=== PATIENT | male | born 1960 | race Two or more races ===

== ENCOUNTER 2021-03-06 16:56 | Emergency (ER) | payer MEDICAID, SELFPAY ==
[2021-03-06 16:57] VITALS: BP 184/96; PULSE 113; RESP 16; TEMP 36.4; O2SAT 98; BMI 18.7
--- NOTE | 2021-03-06 17:12 | EX.ED.DYSGE1 ---
HPI History of Present Illness Chief Complaint: Rash Informant: patient Onset/Context/Timing Onset: Month(s) (1) Context: Gradual Onset Timing: Continuous Quality: Excoriated Location: Bilateral lower legs and left forearm Worsened by: Nothing Relieved by: Nothing Narrative Narrative: Patient presents with a rash to his bilateral lower legs and left forearm that has been getting worse over the past month. Patient denies any itching. Patient noted some redness to the area. Patient denies any discharge or drainage. Patient denies any fevers or chills. Patient denies any new exposures. Patient states that they recently moved from a trammell infested dwelling. Patient denies any other symptoms. PFSH PFSH Medical History no medical history no medical history Home Medications cephalexin 500 mg PO Q6 #40 capsule 03/06/21 [Rx Last Taken Unknown] Allergy/AdvReac Type Severity Reaction Status Date / Time mussels Allergy Angioedema Verified 03/06/21 16:59 naproxen [From Naprosyn] Allergy Angioedema Verified 03/06/21 16:59 Surgical History (Updated 03/06/21 @ 17:[address] Messi Guardado, DO) History of back surgery Hx of inguinal herniorrhaphy ROS ROS ED Constitutional Constitutional ED: Reports chills, subjective and sweats; Denies fever(s) Eyes Eyes: Denies blurry vision or change in vision ENT ENT ED: Denies rhinorrhea or sore throat Cardiovascular Cardiovascular: Denies chest pain or palpitations Respiratory/Chest Respiratory/Chest: Denies cough or dyspnea Gastrointestinal Gastrointestinal: Denies nausea or vomiting Genitourinary Genitourinary ED: Denies dysuria or hematuria Musculoskeletal Musculoskeletal: Denies back pain or neck pain Integumentary Reports rash; Denies abscess Neurologic Neurologic: Denies headache(s) or weakness Allergic/Immunologic Allergic/Immunologic ED: Denies mouth swelling or urticaria EXAM Physical Exam Const Vital Signs: 03/06/21 16:57 Temperature 97.5 F L Temperature Source Temporal Pulse Rate 113 H Respiratory Rate 16 Blood Pressure 184/96 H Blood Pressure Mean 125 Pulse Ox 98 Oxygen Delivery Method Room Air Positive well nourished and well developed General Appearance ED: well developed HEENT Reports moist mucous membranes Neck supple and no JVD Neuro oriented x3, CN's II-XII intact bilaterally and no sensory deficits noted Sensorium / Orientation: alert Motor Exam: strength 5/5 throughout Psych mental status grossly normal Skin Skin Narrative: There is a superficial rash on the anterior lower legs and ulnar aspect of the left distal forearm. There are excoriated areas. There is no discharge or drainage. There are no vesicles or pustules. There are no petechia noted. There is no involvement of mucous membranes. There is no involvement of the webspaces. MDM MDM MDM Narrative Medical decision making narrative: Patient was advised that this is not consistent with scabies since it does not itch and there is no involvement of the webspaces. Patient was given a prescription for Keflex to cover for possible secondary infection. Patient was instructed to use moisturizing lotion. Patient also requested vaccine for COVID-19. This was given. Patient was instructed to follow-up with his primary care physician in 5 to 7 days. Patient understood and was agreeable with the plan. All questions were answered. Discharge Plan Triage Chief Complaint: Rash ED Provider: Messi Guardado Dx/Rx/DC Orders Clinical Impression: Dermatitis Instructions: ED Atopic Dermatitis (Adult) Prescriptions: New cephalexin [cephalexin] 500 MG capsule 500 mg PO Q6 Qty: 40 RF: 0 Primary Care Provider: Care Physician,No Primary Referrals: Yann Leone MD [STAFF PHYSICIAN] - 3-5 Days NOT,DEFINED [NON-STAFF] - Disposition Disposition: Home, Self Care
[2021-03-06] MEDS: COVID-19 VAC,AD26(JANSSEN)/PF 0.5 ML SYRINGE IM (18:33)
[2021-03-06 18:55] VITALS: PULSE 89; RESP 16; O2SAT 96
== END 2021-03-06 18:56 | disposition home or self-care (01) ==
PROVIDERS: Emergency Provider Emergency Medicine
DX: L30.9 Dermatitis, unspecified (principal)
CPT/HCPCS: 91303; 99282

== ENCOUNTER 2021-07-24 21:46 | Inpatient (IN) | payer MEDICAID, SELFPAY ==
[2021-07-24 21:48] VITALS: BP 99/85; PULSE 64; RESP 40; TEMP 36.8; O2SAT 82; BMI 17.5
--- NOTE | 2021-07-24 21:59 | EKG12_ITS ---
Test Reason : Blood Pressure : / mmHG Vent. Rate : 150 BPM Atrial Rate : 150 BPM P-R Int : 186 ms QRS Dur : 074 ms QT Int : 216 ms P-R-T Axes : 081 -12 103 degrees QTc Int : 341 ms Sinus tachycardia Right atrial enlargement Low voltage QRS ST & T wave abnormality, consider lateral ischemia Abnormal ECG Confirmed by TAMMY PEREZ, CARTER ([id number]), editorial intern CROW SOSA ([id number]) on 07/26/2021 10:39:29 AM Referred By: Confirmed By:CARTER MUNOZ MD
--- NOTE | 2021-07-24 22:01 | EDS_ITS ---
HPI History of Present Illness Chief Complaint: Abd Pain Informant: patient Onset/Context/Timing Onset: Today Context: Gradual Onset Timing: Waxes and wanes Current Severity: Moderate Maximum Severity: Severe Narrative Narrative: Patient presents secondary to abdominal pain. He reports abdominal pain started this morning and feels like his prior hernias. He has had 2 prior hernia repairs was told that he would need a third. He also reports some chest pain with shortness of breath. He is noted to be borderline hypotensive and tachycardic on arrival. Pulse oximetry is not picking up good waveform but O2 sats are reading low in the 80s. Patient denies fever or chills. He denies nausea or vomiting. He has been able to have a bowel movement today. [facility] Medical History COPD (chronic obstructive pulmonary disease) Home Medications cephalexin 500 mg PO Q6 #40 capsule 03/06/21 [Rx Last Taken Unknown] Allergy/AdvReac Type Severity Reaction Status Date / Time mussels Allergy Angioedema Verified 03/06/21 16:59 naproxen [From Naprosyn] Allergy Angioedema Verified 03/06/21 16:59 iodine AdvReac Other Verified 07/24/21 22:53 Surgical History History of back surgery Hx of inguinal herniorrhaphy Social History Smoking Status: Current every day smoker tobacco type: cigarettes ROS ROS ED Constitutional Constitutional ED: Denies chills or fever(s) Eyes Eyes: Denies change in vision ENT ENT ED: Denies rhinorrhea or sore throat Cardiovascular Cardiovascular: Reports chest pain and racing heartbeat Respiratory/Chest Respiratory/Chest: Reports dyspnea Gastrointestinal Gastrointestinal: Reports abdominal pain; Denies diarrhea or vomiting Genitourinary Genitourinary ED: Denies dysuria Musculoskeletal Musculoskeletal: Reports back pain Neurologic Neurologic: Denies headache(s) Allergic/Immunologic Allergic/Immunologic ED: Denies urticaria EXAM Physical Exam Const Vital Signs: 07/24/21 21:48 07/24/21 21:58 07/24/21 23:31 Temperature 98.3 F 98.4 F Temperature Source Oral Oral Pulse Rate 64 129 H Respiratory Rate 40 H 22 H Respiratory Effort Short of Breath Respiratory Pattern Tachypnea Blood Pressure 99/85 H 120/77 Blood Pressure Mean 89 91 Pulse Ox 82 89 Oxygen Delivery Method Room Air Nasal Cannula Oxygen Flow Rate (L/min) 4 07/25/21 00:00 07/25/21 01:04 Temperature Temperature Source Pulse Rate 127 H 130 H Respiratory Rate 30 H 28 H Respiratory Effort Respiratory Pattern Blood Pressure 135/74 H 119/78 Blood Pressure Mean 94 91 Pulse Ox 96 98 Oxygen Delivery Method Nasal Cannula Nasal Cannula Oxygen Flow Rate (L/min) 4 4 Positive unkempt General Appearance ED: unkempt HEENT Reports dry mucous membranes Mouth ED: Yes dry mucous membranes Mouth: dry mucous membranes Eyes PERRL and EOMs intact bilaterally Neck supple Resp Resp Narrative: Tachypnea with decreased breath sounds throughout. Mild wheezes. Cardio Rate: tachycardic GI Palpation: soft and tender other (Diffuse tenderness to palpation.) Extremity normal to inspection Neuro oriented x3 Sensorium / Orientation: alert Psych Appearance: unkempt Mood & Affect: anxious Skin no rashes or lesions noted MDM MDM MDM Narrative Medical decision making narrative: Patient initiated on IV fluids. ABG ordered as we were not able to get a reliable pulse ox pleth. Lab work, chest x-ray, cultures obtained. Patient given breathing treatments. Lab Data Attestation: I reviewed the patient's lab results. Labs: Laboratory Results - last 24 hr 07/24/21 07/24/21 07/24/21 21:52 21:52 21:52 WBC 5.1 RBC 3.63 L Hgb 12.4 L Hct 36.4 L MCV 100.3 H MCH 34.2 H MCHC 34.1 RDW Std Deviation 60.1 H RDW Coeff of Tatiana 16.3 H Plt Count 54 L MPV 12.4 H Immature Gran % (Auto) 1.200 H Neut % (Auto) 91.2 H Lymph % (Auto) 3.5 L [place] % (Auto) 3.7 Eos % (Auto) 0.0 Baso % (Auto) 0.4 Absolute Neuts (auto) 4.7 Absolute Lymphs (auto) 0.18 L Nucleated RBC % 0 Differential Comment SEE COMMENT Diff Path Review May foll Toxic Granulation RARE Platelet Estimate MOD DEC RBC Morphology N CHROM Hypochromasia RARE Anisocytosis 1+ Macrocytosis 1+ Target Cells RARE PT 14.0 INR 1.2 APTT 25.8 Sodium 136 Potassium 2.9 L Chloride 100 Carbon Dioxide 21.0 Anion Gap 15 BUN 24 H Creatinine 1.59 H Estim Creat Clear Calc 40.51 Est GFR (MDRD) Af Amer 57 L Est GFR (MDRD) Non-Af 47 L BUN/Creatinine Ratio 15.1 Glucose 112 H Lactic Acid Calcium 7.9 L Total Bilirubin 2.40 H Direct Bilirubin 1.65 H AST 262 H ALT 122 H Alkaline Phosphatase 142 H Troponin I High Sens 4 Total Protein 6.0 L Albumin 2.5 L Globulin 3.5 Lipase < 10 L 07/24/21 07/25/21 07/25/21 22:00 00:10 01:02 WBC RBC Hgb Hct MCV MCH MCHC RDW Std Deviation RDW Coeff of Tatiana Plt Count MPV Immature Gran % (Auto) Neut % (Auto) Lymph % (Auto) [place] % (Auto) Eos % (Auto) Baso % (Auto) Absolute Neuts (auto) Absolute Lymphs (auto) Nucleated RBC % Differential Comment Diff Path Review Toxic Granulation Platelet Estimate RBC Morphology Hypochromasia Anisocytosis Macrocytosis Target Cells PT INR APTT Sodium Potassium Chloride Carbon Dioxide Anion Gap BUN Creatinine Estim Creat Clear Calc Est GFR (MDRD) Af Amer Est GFR (MDRD) Non-Af BUN/Creatinine Ratio Glucose Lactic Acid 7.2 H* Cancelled 4.2 H* Calcium Total Bilirubin Direct Bilirubin AST ALT Alkaline Phosphatase Troponin I High Sens Total Protein Albumin Globulin Lipase ABG Data ABG results: ABG 07/24/21 22:21 Specimen Type ART Sample Site R Radial pH 7.40 Bicarbonate Actual 21.2 L Total CO2 22 Base Excess -4 L O2 Saturation 98 O2 % 44 ABG pCO2 34.1 L ABG pO2 111 H Diaz Test Positive O2 Delivery Device Cannula Radiography Chest X-Ray - ED: 1 View, Read by ED Physician and - (Hyperinflation with mild bilateral infiltrates.) Diagnostic Testing: Clinical Impression(s) from Imaging Studies Abdomen/Pelvis CT 07/24/21 22:31 IMPRESSION: Sigmoid diverticulosis. The majority of the colon is not well distended limiting evaluation of wall thickening. If there is high clinical suspicion of colitis in particular involving the sigmoid colon, considered delayed images after administration of oral contrast or gastroenterology consult. Bilateral pneumonia which may represent Covid pneumonia. Hyperinflation suggestive of COPD. Small nonobstructing left renal calculus. Fatty liver. Old granulomatous disease. Electronically Signed: Jairo Tovar MD at 1:19 EDT , Chest X-Ray 07/24/21 23:05 IMPRESSION: COPD with patchy bilateral pulmonary airspace disease/infiltrate. at 2335 Reported and signed by: Samson Mejia MD Electronically Signed: Samson Mejia MD at 23:34 EDT , EKG Initial EKG: Attestation: I personally reviewed and interpreted this EKG as follows: Interpretation: Sinus Tachycardia (Sinus tach at 150. Lateral ST depression.) Treatment and Re-Evaluation Narrative: Lab work reveals normal white count but left shift is noted. Chemistry studies show hepatic values. Creatinine is 1.59. Troponin is normal. Initial lactic acid returns at 7.2. Patient given fentanyl and Zofran for pain and nausea. ABG reveals pH normal at 7.4 with an O2 sat of 98%. PCO2 is 34 and PO2 is 111. Patient's heart rate returns to the high 120s. Blood pressure is improved to the 1 10-1 20 systolic range. Patient remains tachypneic but respiratory rate is improved. CT scan of the abdomen and pelvis is obtained without contrast as patient reports allergy to iodine contrast. This reveals evidence of bilateral pneumonia, questionable Covid. They do note that the distal colon is not well distended. They recommend that if colitis is a concern repeating the study with oral contrast. Covid test is obtained and negative. Patient is given Zosyn and vancomycin. Test results are discussed with Dr. Heath, on-call for surgery. She does review the CT images and labs. She does request repeat CT with p.o. contrast with delayed images obtained approximately 3 hours after oral contrast ingestion. I did speak with technical assistance consultant for this. I will speak with hospitalist as patient can be admitted and brought back down for those delayed images. Critical Care Time Critical Care Time: Yes Critical care time (excluding procedures): 30-74 minutes (40 minutes), Discussing w/Patient &/or Family/Build And Release Manager, Discussing w/Consultants, Arranging Admission or Transfer and Performing Direct Patient Care at Bedside Discharge Plan Triage Chief Complaint: Abd Pain Other Complaint: Hypotension ED Provider: Vijaya Parks Dx/Rx/DC Orders Clinical Impression: Pneumonia, Abdominal pain, Transaminitis, Acidosis, lactic Prescriptions: No Action cephalexin [cephalexin] 500 MG capsule 500 mg PO Q6 Qty: 40 RF: 0 Primary Care Provider: Care Physician,No Primary Referrals: Care Physician,No Primary [Primary Care Provider] - Disposition Disposition: Acute Care Hospital [facility]
[2021-07-24] MEDS: Ipratropium/Albuterol Sulfate 3 ML AMPUL.NEB INHALATION (22:04)
[2021-07-24] MEDS: 0.9% Normal Saline 1,000 ML 1000 ML IV (22:05)
[2021-07-24] MEDS: fentaNYL 100 MCG/2 ML Ampul 25 MCG IV (22:06)
[2021-07-24] MEDS: Ondansetron 4 MG/2 ML Vial IV (22:07)
[2021-07-24 22:15] LABS: Absolute Lymphocyte Count 0.18 X10^3/uL (0.83-4.51); Absolute Neutrophil Count 4.7 X10^3/uL (2.0-7.7); Basophil# 0.02 X10^3/uL; Basophil% 0.4 % (0-1); Hematocrit 36.4 % (40-54); Hemoglobin 12.4 g/dL (13.0-16.5); Lymphocyte # 0.18 X10^3/ul (0.83-4.51); Lymphocyte % 3.5 % (19-41); Mean Corp Hgb Conc 34.1 g/dL (32-36); Mean Corpuscular Hgb 34.2 pg (27.0-32.0); Mean Corpuscular Volume 100.3 fL (80-94); Mean Platelet Vol. 12.4 fl (6.2-12.0); Monocyte# 0.19 X10^3/uL; Monocyte% 3.7 % (0-10); NRBC Flagged by Analyzer 0 % (0-5); Neutrophil # 4.67 X10^3/uL (2.7-7.7); Neutrophil % 91.2 % (47-70); POSITIVE COUNT YES; POSITIVE DIFFERENTIAL YES; POSITIVE MORPHOLOGY YES; Platelet Count 54 K/mm3 (150-450); RBC Distribution Width CV 16.3 % (11.6-14.6); RBC Distribution Width SD 60.1 fl (35.1-43.9); Red Blood Count 3.63 M/mm3 (4.6-6.2); White Blood Count 5.1 K/mm3 (4.4-11.0)
[2021-07-24 22:17] LABS: International Normalized Ratio 1.2
[2021-07-24 22:18] LABS: Partial Thromboplast Time 25.8 Seconds (24.1-36.2)
[2021-07-24 22:21] LABS: Differential Indicated SCAN CRITERIA MET
[2021-07-24 22:26] LABS: Allen Test Positive; Base Excess -4 mmol/L (-2 to +2); Bicarbonate 21.2 mmol/L (22-26); Blood Gas Specimen Type ART; FI02 44; O2 Delivery Device Cannula; PO2 111 mmHG (75-100); SITE R Radial; SO2 98 % (95-99); Total Carbon Dioxide 22 mmol/L; pCO2 34.1 mmHg (35-45)
[2021-07-24 22:29] LABS: AST(SGOT) 262 U/L (15-37); Alanine Aminotransfer ALT/SGPT 122 U/L (16-61); Albumin, Serum 2.5 g/dL (3.2-5.0); Alkaline Phosphatase 142 U/L (45-117); Anion Gap 15 (5-15); BUN 24 mg/dL (7-18); BUN/Creat Ratio 15.1 RATIO (10-20); Bilirubin, Direct 1.65 mg/dL (0.00-0.30); Calcium,Total 7.9 mg/dL (8.5-10.1); Chloride 100 mmol/L (98-107); Creatinine, Serum 1.59 mg/dL (0.70-1.30); EST Glomerular Filtration Rate 47 mL/min (>60); Est Glom Filt Rate - Afr Amer 57 mL/min (>60); Estimated Creatinine Clearance 40.51 ml/min; Globulin 3.5 g/dL (2.2-4.2); Glucose 112 mg/dL (74-106); Lipase < 10 U/L (73-393); Potassium 2.9 mmol/L (3.5-5.1); Sodium Level 136 mmol/L (136-145); Troponin-I HS 4 pg/mL (3.0-78.0)
--- NOTE | 2021-07-24 22:31 | CT_ITS ---
STUDY: CT ABDOMEN AND PELVIS WITH CONTRAST REASON FOR EXAM: Male, 60 years old. Abdominal pain. RADIATION DOSAGE (If Supplied By Facility): CTDIvol = ( 9.89 ) mGy, DLP = ( 514.09 ) mGycm TECHNIQUE: Transaxial images were obtained from the dome of the diaphragm to the symphysis pubis without oral contrast. IV 100mL [id number]-[id number] was administered. Sagittal and coronal images were reconstructed. Individualized dose optimization techniques were used for this CT. COMPARISON: Chest x-ray July 24, 2021. FINDINGS: Lungs are hyperinflated. Patchy peripheral groundglass opacities in the right middle lobe, lingular segment and both lower lobes. No effusions. The visualized portions of the heart are within normal limits. There is decreased attenuation of the liver consistent with steatosis. Normal gallbladder and extrahepatic biliary system. There are multiple benign calcified granulomata of the spleen. Normal pancreas. Normal bilateral adrenal glands. Normal right kidney. There is a 1 mm inferior pole nonobstructing left renal calculus. Normal visualized stomach. Normal small intestine. The majority of the colon is not well-distended limiting evaluation wall thickening. Transverse colon is well-distended and is normal. There are scattered diverticuli involving the mid sigmoid colon in the left hemipelvis. The entire sigmoid colon is not well distended and wall thickening cannot be excluded. The appendix is visualized and appears normal. There are atherosclerotic changes of the abdominal aorta. Normal inferior vena cava. Normal retroperitoneum. No intra-abdominal free air. Normal urinary bladder. Normal visualized prostate gland. Normal abdominal wall. Degenerative changes of the lower thoracic and lower lumbar spine. CT/Abdomen/Pelvis without Cont IMPRESSION: Sigmoid diverticulosis. The majority of the colon is not well distended limiting evaluation of wall thickening. If there is high clinical suspicion of colitis in particular involving the sigmoid colon, considered delayed images after administration of oral contrast or gastroenterology consult. Bilateral pneumonia which may represent Covid pneumonia. Hyperinflation suggestive of COPD. Small nonobstructing left renal calculus. Fatty liver. Old granulomatous disease. Electronically Signed: Jairo Tovar MD at 1:19 EDT Reading Location ID and State: [id number] / , Service support ,
[2021-07-24] MEDS: Albuterol 2.5 MG/3 ML VIAL.NEB. INHALATION (22:36)
[2021-07-24 22:38] LABS: Anisocytosis 1+; Platelet Estimate MOD DEC (ADEQ); Red Cell Morphology N CHROM NORMAL (NORM C&C); Toxic Granulation RARE
[2021-07-24 22:39] LABS: Hypochromasia RARE; Macrocytosis 1+; Target Cells RARE
[2021-07-24] MEDS: Potassium Chloride 10mEq/100mL 10 MEQ/100 ML IV.SOLN. 100 MEQ IV BOLUS ×2 (22:44→23:28)
[2021-07-24] MEDS: 0.9% Normal Saline 1,000 ML 150 ML IV (22:45)
--- NOTE | 2021-07-24 22:51 | ED.RN ---
lact. received 7.9 md aware.
[2021-07-24 22:52] LABS: Lactic Acid 7.2 mmol/L (0.4-1.9)
--- NOTE | 2021-07-24 23:05 | RAD_ITS ---
HISTORY: Shortness of breath EXAMINATION/TECHNIQUE: XR Chest 1 View AP view COMPARISON: Concurrent CT abdomen and pelvis FINDINGS: LINES/DEVICES: monitoring engineer leads. LUNGS: Markedly hyperexpanded lungs noted. Several patchy airspace opacities within mid to lower lungs. No pleural effusion. No pneumothorax. MEDIASTINUM AND CARDIOVASCULAR STRUCTURES: Cardiac silhouette not enlarged. Central airways and mediastinal contour are unremarkable. BONES AND SOFT TISSUES: No acute findings. RAD/Chest 1 View (Portable) IMPRESSION: COPD with patchy bilateral pulmonary airspace disease/infiltrate. at 2335 Reported and signed by: Samson Mejia MD Electronically Signed: Samson Mejia MD at 23:34 EDT ,
[2021-07-24] MEDS: 0.9% Normal Saline 1,000 ML 999 ML IV (23:29)
[2021-07-24 23:31] VITALS: BP 120/77; PULSE 129; RESP 22; TEMP 36.9; O2SAT 89
[2021-07-24] MEDS: fentaNYL 100 MCG/2 ML Ampul 50 MCG IV (23:38)
[2021-07-25] VITALS (51 sets, daily range): BP systolic 32–146; BP diastolic 12–95; PULSE 84–142; RESP 12–38; TEMP 36.4–37.5; O2SAT 84–100; BMI 17.6
[2021-07-25] MEDS: Potassium Chloride 10mEq/100mL 10 MEQ/100 ML IV.SOLN. 100 MEQ IV BOLUS ×6 (00:34→09:19)
[2021-07-25] MEDS: Piperacil/Tazobactam 3.375 GM/50 ML ML IV ×3 (01:03→13:22)
[2021-07-25] MEDS: Vancomycin IV 1,000 MG/200 ML BAG 200 MG IV (01:41)
[2021-07-25 01:42] LABS: Lactic Acid 4.2 mmol/L (0.4-1.9)
[2021-07-25] MEDS: Ipratropium/Albuterol Sulfate 3 ML AMPUL.NEB INHALATION ×3 (02:12→13:45)
[2021-07-25 02:13] LABS: Reflex Lactate? Y
[2021-07-25] MEDS: Albuterol 2.5 MG/3 ML VIAL.NEB. INHALATION (02:13)
[2021-07-25] MEDS: Ondansetron 4 MG/2 ML Vial IV (02:30)
[2021-07-25] MEDS: Morphine 4 MG/ML Syringe IV (02:30)
[2021-07-25] MEDS: MethylPREDNISolone 125 MG/2 ML Vial IV (02:40)
--- NOTE | 2021-07-25 04:29 | PCM.HP.STD ---
HPI - General General Date of Admission: 07/25/21 Date of Service: 07/25/21 Chief Complaint: Abdominal pain. Hypotensive on arrival along with shortness of breath. Multiple issues [facility] Narrative SHARON TREJO, is a 60 M with no prior admission in [place] came to ER for abdominal pain mainly right upper quadrant was found to be hypotensive. Patient BP 99/85, heart rate 129/min, respiratory rate 40/min, pulse ox 82% on room air. Patient was initially given IV fluid normal saline bolus and blood pressure temporarily responded to 126/93. When patient moved to ICU, BP dropped to 79/59, 68/58. Start IV fluid Ringer lactate bolus and Levophed drip. Patient also very short of breath, tachypneic and hypoxic and put on BiPAP in ED. ABG was done. Chest x-ray individually reviewed and shows bilateral patchy infiltrates. Complain of abdominal pain sudden onset started day before admission on 07/24 morning. Abdominal pain mainly right upper quadrant, constant and epigastric region gets worse with breathing. Chest pain mentioned in ER physician note is mainly around xiphisternum. Denies upper right or left chest pain. Patient has been drinking beer for long time usually 6 bottles but currently cut down to 2 bottles. Patient denies fever or chills, cough, sputum production. No nausea or vomiting. Patient is also a chronic smoker usually 1 pack/day, cut down to half pack per day. Has not seen physician for long time. Detailed characteristics of abdominal pain and history is limited because patient is on BiPAP with severe shortness of breath, tachypnea and hypoxia and hypotension. Patient is admitted to ICU. [facility] Medical History COPD (chronic obstructive pulmonary disease) Home Medications cephalexin 500 mg PO Q6 #40 capsule 03/06/21 [Rx Last Taken Unknown] ibuprofen PRN PRN 07/25/21 [History Last Taken Unknown] Allergy/AdvReac Type Severity Reaction Status Date / Time mussels Allergy Angioedema Verified 03/06/21 16:59 naproxen [From Naprosyn] Allergy Angioedema Verified 03/06/21 16:59 iodine AdvReac Other Verified 07/24/21 22:53 Surgical History History of back surgery Hx of inguinal herniorrhaphy Social History Smoking Status: Current every day smoker tobacco type: cigarettes ROS ROS Narrative Complete 14 ROS unobtainable due to severe shortness of breath, BiPAP and respiratory failure. Constitutional: Reports fatigue and weakness severe shortness of breath. HEENT: Reports systems reviewed and no addt'l complaints, except as documented Respiratory/Chest: As mentioned in HPI. On BiPAP Gastrointestinal: Abdominal pain. Denies coffee ground emesis, hematemesis or vomiting Genitourinary: Denies burning urination or new urinary tract symptoms Musculoskeletal: Chronic lower back pain. Bilateral feet pain, neuropathic pain. Neurologic: Denies seizure-like activity skin: No ulcer. No rash Endocrinology: Not obtainable Hematologic/Lymphatic: Not obtainable Vital Signs Vital Signs Vital Signs: 07/24/21 21:48 07/24/21 21:58 07/24/21 23:31 Temperature 98.3 F 98.4 F Temperature Source Oral Oral Pulse Rate 64 129 H Respiratory Rate 40 H 22 H Respiratory Effort Short of Breath Respiratory Pattern Tachypnea Blood Pressure 99/85 H 120/77 Blood Pressure Mean 89 91 Blood Pressure Source Blood Pressure Position Blood Pressure Location Pulse Ox 82 89 Oxygen Delivery Method Room Air Nasal Cannula Oxygen Flow Rate (L/min) 4 Fraction of Inspired Oxygen (FIO2) 07/25/21 00:00 07/25/21 01:04 07/25/21 02:00 Temperature Temperature Source Pulse Rate 127 H 130 H 137 H Respiratory Rate 30 H 28 H 25 H Respiratory Effort Respiratory Pattern Blood Pressure 135/74 H 119/78 106/81 H Blood Pressure Mean 94 91 89 Blood Pressure Source Blood Pressure Position Blood Pressure Location Pulse Ox 96 98 Oxygen Delivery Method Nasal Cannula Nasal Cannula Oxygen Flow Rate (L/min) 4 4 Fraction of Inspired Oxygen (FIO2) 07/25/21 02:53 07/25/21 03:08 07/25/21 03:32 Temperature 97.8 F Temperature Source Oral Pulse Rate 140 H 126 H 138 H Respiratory Rate 38 H 26 H 37 H Respiratory Effort Respiratory Pattern Tachypnea Blood Pressure 126/93 H 79/59 L Blood Pressure Mean 104 65 Blood Pressure Source Blood Pressure Position Blood Pressure Location Pulse Ox 97 Oxygen Delivery Method Bi-pap Bi-pap Oxygen Flow Rate (L/min) Fraction of Inspired Oxygen (FIO2) 30 07/25/21 03:58 07/25/21 04:08 07/25/21 04:10 Temperature 98.8 F Temperature Source Temporal Pulse Rate 140 H 141 H 142 H Respiratory Rate 32 H 36 H Respiratory Effort Respiratory Pattern Tachypnea Blood Pressure 68/58 L Blood Pressure Mean 61 Blood Pressure Source Monitor Blood Pressure Position Semi-Fowlers Blood Pressure Location Right Arm Pulse Ox 100 99 Oxygen Delivery Method Bi-pap Oxygen Flow Rate (L/min) Fraction of Inspired Oxygen (FIO2) 40 30 Weight Weight: 130 lb 1.164 oz Body Mass Index (BMI) 17.6 Physical Exam Narrative General: Alert, Oriented x3, Cooperative. Short of breath HEENT: Atraumatic, PERRLA, EOMI, Normocephalic Oral: No Gingival or Mucosal Lesions/ Ulcerations Neck: Supple, No JVD, Negative Carotid Bruits Lungs: Air entry severely diminished bilaterally. On BiPAP. Dyspnea at rest. Cardiovascular: Sinus tachycardia, hypotension, heart rate muffled, No murmurs. Periphery cold. Abdomen: Soft, tenderness present over right subcostal margin and epigastrium. Bowel Sounds Present. No rigidity. No palpable mass : No renal angle tenderness. No suprapubic tenderness. Extremities: No edema Skin: No ulcer. No rash Musculoskeletal: Mild tenderness of her feet, neuropathic pain. Spine could not be examined because of acuity of condition, shock and BiPAP Neurological: No focal deficit. DTR 2/4 and Symmetrical Psych/Mental Status: Flat affect. Results Lab / Micro Data Result Diagrams: 07/25/21 04:45 07/24/21 21:52 Labs: Laboratory Results - last 24 hr 07/24/21 21:52: WBC 5.1, RBC 3.63 L, Hgb 12.4 L, Hct 36.4 L, MCV 100.3 H, MCH 34.2 H, MCHC 34.1, RDW Std Deviation 60.1 H, RDW Coeff of Tatiana 16.3 H, Plt Count 54 L, MPV 12.4 H, Immature Gran % (Auto) 1.200 H, Neut % (Auto) 91.2 H, Lymph % (Auto) 3.5 L, [place] % (Auto) 3.7, Eos % (Auto) 0.0, Baso % (Auto) 0.4, Absolute Neuts (auto) 4.7, Absolute Lymphs (auto) 0.18 L, Nucleated RBC % 0, Differential Comment SEE COMMENT, Diff Path Review May foll, Toxic Granulation RARE, Platelet Estimate MOD DEC, RBC Morphology N CHROM, Hypochromasia RARE, Anisocytosis 1+, Macrocytosis 1+, Target Cells RARE 07/24/21 21:52: PT 14.0, INR 1.2, APTT 25.8 07/24/21 21:52: Sodium 136, Potassium 2.9 L, Chloride 100, Carbon Dioxide 21.0, Anion Gap 15, BUN 24 H, Creatinine 1.59 H, Estim Creat Clear Calc 40.51, Est GFR (MDRD) Af Amer 57 L, Est GFR (MDRD) Non-Af 47 L, BUN/Creatinine Ratio 15.1, Glucose 112 H, Calcium 7.9 L, Total Bilirubin 2.40 H, Direct Bilirubin 1.65 H, AST 262 H, ALT 122 H, Alkaline Phosphatase 142 H, Troponin I High Sens 4, Total Protein 6.0 L, Albumin 2.5 L, Globulin 3.5, Lipase < 10 L 07/24/21 22:00: Lactic Acid 7.2 H* 07/25/21 00:10: Lactic Acid Cancelled 07/25/21 01:02: Lactic Acid 4.2 H* Micro: Microbiology 07/25/21 01:27 Nasal Secretion SARS-CoV-2 Antigen (Rapid) - Final ABG Data ABG results: ABG 07/24/21 22:21 Specimen Type ART Sample Site R Radial pH 7.40 Bicarbonate Actual 21.2 L Total CO2 22 Base Excess -4 L O2 Saturation 98 O2 % 44 ABG pCO2 34.1 L ABG pO2 111 H Diaz Test Positive O2 Delivery Device Cannula Radiology Impression Abdomen/Pelvis CT 07/24/21 22:31 IMPRESSION: Sigmoid diverticulosis. The majority of the colon is not well distended limiting evaluation of wall thickening. If there is high clinical suspicion of colitis in particular involving the sigmoid colon, considered delayed images after administration of oral contrast or gastroenterology consult. Bilateral pneumonia which may represent Covid pneumonia. Hyperinflation suggestive of COPD. Small nonobstructing left renal calculus. Fatty liver. Old granulomatous disease. Chest X-Ray 07/24/21 23:05 IMPRESSION: COPD with patchy bilateral pulmonary airspace disease/infiltrate. Assessment & Plan Assessment/Plan (1) Septic shock: PLAN: 1. Septic shock (hypotension, tachycardia, tachypnea, hypoxia, lactic acidosis with organ failure;acute hypoxic respiratory failure acute kidney injury and acute liver injury) most likely due to bilateral pneumonia with suspicion of sigmoid colitis: The patient is being admitted in ICU with septic shock protocol. Patient remained hypotensive after 30 mill fluid bolus protocol therefore started on IV norepinephrine drip. Most recent blood pressure 102/88. Infectious work-up for pneumonia ordered. Patient has leukopenia with lymphocytopenia, thrombocytopenia with rare toxic granules. Lactic acid is 7.2, repeat 4.2. Started on broad-spectrum antibiotic IV vancomycin and Zosyn. [employer] Teacher consulted. 2. Acute hypoxic respiratory failure, most probably bilateral pneumonia: Patient is chronic smoker unclear whether he has COPD. U tox ordered. ABG 7.4 on 44% FiO2 through nasal cannula. Currently patient is put on BiPAP. Further management as per academic affairs manager. PFT as an outpatient. 3. Possible acute kidney injury most likely due to septic shock/hypotension: There is no prior labs in our system. BUN/creatinine high 24/1.59. Monitor kidney function electrolytes. 4. Acute liver injury due to septic shock with possibility of chronic alcoholic hepatitis: Patient admitted that he was drinking alcohol about 6 bottles of beer previously but cut down to 2 bottles. AST ALT ratio more than 2 is to 1. Total bilirubin 2.4, direct 1.65, alkaline phosphatase 142. Repeat liver chemistry shows improvement. Right upper quadrant sonogram ordered. GGT and serum alcohol ordered. Hepatitis panel ordered from ER physician 5. Severe hypokalemia: Potassium is being replaced. Severe hypomagnesemia serum magnesium 1.0. Serum phosphorus normal 6. 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 Hyperglycemia. Total time of the visit including total time spent in counseling or coordination of care, (more than 50% of the total time, spent in obtaining medical information from nurses and other ancillary care providers,explaining to the patient about labs, imaging, diagnosis and management), management of septic shock, review of labs and imaging is 60 minutes. Living will/advanced directive/end of life care: Patient does not have living will or advanced directive. After discussion of benefits/risks procedures involved with full code, DNR CC arrest and DNR CC when the patient on BiPAP, he affirmed full code. He wants to be resuscitated Patient does want artificial life support including intubation, tube feed, ventilator and/chest compression, central venous catheter, vasopressor and DC shock if needed Total time spent in [id number] encounter in discussion of advanced directive 16 minutes. Charges/Coding Visit Charges Inpatient E&M: 11098 Init Hosp L3 Procedures Hospitalists Procedures: 83845 Critial Care 1st Hr
[2021-07-25 04:58] LABS: Hematocrit 32.1 % (40-54); Hemoglobin 10.8 g/dL (13.0-16.5); Mean Corp Hgb Conc 33.6 g/dL (32-36); Mean Corpuscular Volume 100.9 fL (80-94); Mean Platelet Vol. 11.4 fl (6.2-12.0); POSITIVE COUNT YES; POSITIVE DIFFERENTIAL YES; POSITIVE MORPHOLOGY YES; Platelet Count 36 K/mm3 (150-450); RBC Distribution Width CV 16.4 % (11.6-14.6); Red Blood Count 3.18 M/mm3 (4.6-6.2); White Blood Count 1.6 K/mm3 (4.4-11.0)
[2021-07-25] MEDS: Morphine 2 MG/ML Syringe IV (05:00)
[2021-07-25] MEDS: Lactated Ringers 1,000 ML 999 ML IV ×2 (05:00→12:20)
[2021-07-25 05:05] LABS: Differential Indicated MANUAL DIFF
[2021-07-25 05:09] LABS: Reflex Lactate? Y
[2021-07-25 05:14] LABS: Phosphorus 2.7 mg/dL (2.5-4.9)
--- NOTE | 2021-07-25 05:25 | PCM.RX.CS ---
Consult Pharmacy has been consulted to manage selected antiobiotic: Vancomycin Type of Consult: New start Suspected Infection: Pneumonia Microbiology: Microbiology 07/25/21 01:27 Nasal Secretion SARS-CoV-2 Antigen (Rapid) - Final Goal Trough: 15-20 mcg/mL Pharmacy Plan for Drug Dosing: Pharmacy Service will continue to monitor and adjust dosing as required. Medications Vancomycin HCl () 500 mg in 100 mls @ 100 mls/hr IV Q12H MARCIA Discontinued Medications Vancomycin HCl (Vancomycin) 1,000 mg in 200 mls @ 200 mls/hr 15 mg/kg (1000 mg) IV X1 ONE Stop: 07/25/21 01:26 Last Admin: 07/25/21 02:42 Dose: Infused Documented by: Follow-Up Labs: Trough Vancomycin Labs to be done on [date and time ordered]: 07/26 @ 0345
[2021-07-25 05:29] LABS: ALB/GLOB Ratio 0.7 RATIO (0.9-2.4); AST(SGOT) 164 U/L (15-37); Alanine Aminotransfer ALT/SGPT 86 U/L (16-61); Albumin, Serum 1.9 g/dL (3.2-5.0); Alkaline Phosphatase 68 U/L (45-117); Anion Gap 13 (5-15); BUN 25 mg/dL (7-18); BUN/Creat Ratio 15.7 RATIO (10-20); CPK Total, Creatine Kinase 101 U/L (39-308); Calcium,Total 6.6 mg/dL (8.5-10.1); Chloride 109 mmol/L (98-107); Creatinine, Serum 1.59 mg/dL (0.70-1.30); EST Glomerular Filtration Rate 47 mL/min (>60); Est Glom Filt Rate - Afr Amer 57 mL/min (>60); Estimated Creatinine Clearance 40.71 ml/min; Globulin 2.7 g/dL (2.2-4.2); Glucose 132 mg/dL (74-106); Potassium 2.9 mmol/L (3.5-5.1); Protein, Total 4.6 g/dL (6.4-8.2); Sodium Level 140 mmol/L (136-145)
[2021-07-25] MEDS: oxyCODONE 5 MG Tablet PO (05:46)
[2021-07-25 05:53] LABS: Lymphocyte 5 % (19-41); Metamyelocyte 6 % (0-1); Monocyte 12 % (0-10); Neutrophil-Band 2 % (0-5); Neutrophil-Segmented 75 % (47-70); Total Cells Counted 100 (MANUAL DIFF)
[2021-07-25 05:56] LABS: Absolute Lymphocyte Count 0.08 X10^3/uL (0.83-4.51); Absolute Neutrophil Count 1.3 X10^3/uL (2.0-7.7); Lymphocyte # 0.08 X10^3/ul (0.83-4.51); Neutrophil # 1.33 X10^3/uL (2.7-7.7)
[2021-07-25 05:57] LABS: Platelet Estimate MKD DEC (ADEQ)
[2021-07-25 05:58] LABS: Red Cell Morphology NORM C+C NORMAL (NORM C&C)
[2021-07-25] MEDS: Lactated Ringers 1,000 ML 500 ML IV (05:58)
[2021-07-25 06:00] LABS: Differential Comment MANUAL DIFF
--- NOTE | 2021-07-25 06:03 | PN.HOSP_ITS ---
Hospitalist Note Sepsis follow-up note. Patient has septic shock most likely due to bilateral pneumonia. Patient also has sigmoid colitis and since it is ER physician discussed with surgeon Dr. Heath and she agreed to see the patient. But there is suspicion of ischemic bowel disease in view of severe lactic acidosis, abdominal pain, metabolic acidosis. Seen and examined. Overall there is mild improvement in blood pressure. Patient is completely off BiPAP. Complain of chest congestion, rattling and unable to bring up phlegm. Mild cough. Had Covid vaccine and booster. Denies any recent contact. Planes of lower back pain, and back surgery. Lungs: Air entry severely diminished. Bilateral coarse crepitation and rhonchi. Severe hypoxia and tachypnea Heart S1-S2 regular, sinus tachycardia. Labs reviewed. Leukopenia, severe thrombocytopenia. Macrocytic anemia. Hemoglobin 10.8 and dropped from 12.4 may be hemodilution. Does not have any ac [place] external blood loss. Severe hypokalemia, metabolic acidosis. Lactic acidosis improved. Magnesium 1.0. Phosphorus 2.7. Mild improvement in transaminases and liver chemistry. Severe hypoalbuminemia Anticoagulant for DVT prophylaxis contraindicated because of severe thrombocytopenia. Discussed with the packager and strapper. Surgeon consulted
[2021-07-25] MEDS: Magnesium Sulfate 4gm/100mL 4 GM/100 ML IV.SOLN. IV (06:50)
--- NOTE | 2021-07-25 07:06 | US_ITS ---
STUDY: ABDOMINAL ULTRASOUND - RIGHT UPPER QUADRANT REASON FOR VISIT: Male, 60 years old ABNORMAL LFT, chronic alcoholic TECHNIQUE: Ultrasound evaluation of the right upper quadrant was performed with real-time and static zelaya-scale imaging. TECHNICAL QUALITY: Adequate. COMPARISON: None. FINDINGS: Liver: The liver measures 12.6 cm. There is increased echogenicity consistent with fatty infiltration. The bile ducts are within normal limits. There is hepatic color flow. The direction of portal flow is hepatopetal. There is no demonstrated mass lesion. Gallbladder: Normal distended gallbladder. The gallbladder wall measures 3.2 mm. There is a negative sonographic Martinez''s sign. Minimal amount of pericholecystic fluid. There are no gallstones. Common Bile Duct (C.B.D.): The common bile duct measures 4.2 mm. Pancreas: There is nonvisualization of the pancreas due to overlying bowel gas. Right Kidney: Normal size of the right kidney. The right kidney measures 10.8 cm x 5 cm x 4.3 cm. Normal renal cortex. The right cortex measures 1.7 cm. There is no demonstrated renal mass or cyst. There is no right hydronephrosis. US/Abdomen Limited IMPRESSION: Fatty infiltration of the liver. Minimal amount of pericholecystic fluid. Electronically Signed: Florin Mead MD at 14:54 EDT ,
--- NOTE | 2021-07-25 07:25 | CON.PCM.SX_ITS ---
Assessment & Plan Assessment/Plan (1) Abdominal pain: (2) Septic shock: (3) Pneumonia: (4) Transaminitis: (5) Sigmoid thickening: (6) Thrombocytopenia: PLAN: Reviewed patient CT abdomen pelvis with no contrast-do agree there could be thickening of the sigmoid colon?recommend CT abdomen pelvis with p.o. and IV contrast if possible. Patient was unable to get this this morning due to hypotension plan for later this morning. Ultrasound of the liver also ordered. However patient's pain on exam is mostly epigastric right upper quadrant and left upper quadrant not really lower abdomen. Patient also has elevated liver function and thrombocytopenia consistent with liver disease likely due to alcohol as patient states he drinks 2 beers a day but prior to moving to [facility] (patient unsure when this was less than 5 years ago) he states he did drink a lot. Due to thrombocytopenia patient is not a surgical candidate currently and currently there is no definitive indication for surgical intervention. We will plan to follow-up CT abdomen pelvis with IV and p.o. contrast to evaluate the sigmoid colon and liver better. Patient is on IV antibiotics per primary for possible colitis and pneumonia. Patient no further question this time. Addendum: CT a/p unable to be completed as pt required intubation/pressors, bld cx +gram neg rods. Pt passed at 14:55 per nursing. Kenyetta Heath M.D. Pager: [phone] [facility] [address] [place] [address], [facility], [address] [place] [address] Office: [phone] HPI Consult Data Date of Consult: 07/25/21 HPI Narrative HPI Narrative: SHARON TREJO, is a 60 M who presents to the ER due to abdominal pain and back pain. Patient states this started yesterday. Patient denies any nausea or vomiting. Patient states his last bowel movement was about 2 days ago has been having flatus. CT abdomen pelvis without contrast on the ER does question whether there is some sigmoid thickening and bilateral pneumonia. Patient's liver functions are also elevated he does have a history of alcoholism. Drinks 2 beers a day currently states that prior to moving to [facility] which she states was less than 5 years ago unsure the e xact year he did drink a lot. Patient denies shortness of breath does have a cough the patient also smokes as well. [facility] Medical History COPD (chronic obstructive pulmonary disease) Home Medications cephalexin 500 mg PO Q6 #40 capsule 03/06/21 [Rx Last Taken Unknown] ibuprofen PRN PRN 07/25/21 [History Last Taken Unknown] Allergy/AdvReac Type Severity Reaction Status Date / Time mussels Allergy Angioedema Verified 03/06/21 16:59 naproxen [From Naprosyn] Allergy Angioedema Verified 03/06/21 16:59 iodine AdvReac Other Verified 07/24/21 22:53 Surgical History History of back surgery Hx of inguinal herniorrhaphy Social History Smoking Status: Current every day smoker tobacco type: cigarettes ROS Constitutional Constitutional: Denies anorexia or chills Eyes Eyes: Denies blurry vision ENT HEENT: Reports dysphagia; Denies dizziness Cardiovascular Cardiovascular: Denies chest pain Respiratory/Chest Respiratory/Chest: Reports cough; Denies shortness of breath at rest Gastrointestinal Gastrointestinal: Reports abdominal pain; Denies constipation, diarrhea, heartburn, hematemesis, nausea or vomiting Genitourinary Genitourinary: Denies burning urination or dysuria Musculoskeletal Musculoskeletal: Reports back pain Integumentary Integumentary: Denies rash Neurologic Neurologic: Denies abnormal gait, abnormal hearing, focal weakness, paresthesias or sensory deficit Psychiatric Psychiatric: Denies anxiety or depression Endocrine Endocrinology: Denies cold intolerance Hematologic/Lymphatic Hematologic/Lymphatic: Denies anemia, easy bleeding or easy bruising Physical Exam Const alert and oriented x3 Nutritional Appearance: cachectic HEENT normocephalic and head/scalp atraumatic Neck supple Resp normal respiratory effort Cardio Rate: tachycardic GI soft to palpation GI Narrative: Equivocal rebound Palpation: tender epigastric, LUQ, RUQ and other (+rebound); Negative for guarding Extremity General Extremity: Negative for edema Neuro Speech: speech normal Psych affect normal Lab / Micro Data Result Diagrams: 07/25/21 04:45 07/25/21 12:05 Labs: Laboratory Results - last 24 hr 07/24/21 21:52: WBC 5.1, RBC 3.63 L, Hgb 12.4 L, Hct 36.4 L, MCV 100.3 H, MCH 34.2 H, MCHC 34.1, RDW Std Deviation 60.1 H, RDW Coeff of Tatiana 16.3 H, Plt Count 54 L, MPV 12.4 H, Immature Gran % (Auto) 1.200 H, Neut % (Auto) 91.2 H, Lymph % (Auto) 3.5 L, [place] % (Auto) 3.7, Eos % (Auto) 0.0, Baso % (Auto) 0.4, Absolute Neuts (auto) 4.7, Absolute Lymphs (auto) 0.18 L, Nucleated RBC % 0, Differential Comment SEE COMMENT, Diff Path Review May foll, Toxic Granulation RARE, Platelet Estimate MOD DEC, RBC Morphology N CHROM, Hypochromasia RARE, Anisocytosis 1+, Macrocytosis 1+, Target Cells RARE 07/24/21 21:52: PT 14.0, INR 1.2, APTT 25.8 07/24/21 21:52: Sodium 136, Potassium 2.9 L, Chloride 100, Carbon Dioxide 21.0, Anion Gap 15, BUN 24 H, Creatinine 1.59 H, Estim Creat Clear Calc 40.51, Est GFR (MDRD) Af Amer 57 L, Est GFR (MDRD) Non-Af 47 L, BUN/Creatinine Ratio 15.1, Glucose 112 H, Calcium 7.9 L, Total Bilirubin 2.40 H, Direct Bilirubin 1.65 H, AST 262 H, ALT 122 H, Alkaline Phosphatase 142 H, Troponin I High Sens 4, Total Protein 6.0 L, Albumin 2.5 L, Globulin 3.5, Lipase < 10 L 07/24/21 22:00: Lactic Acid 7.2 H* 07/25/21 00:10: Lactic Acid Cancelled 07/25/21 01:02: Lactic Acid 4.2 H* 07/25/21 04:45: Sodium 140, Potassium 2.9 L, Chloride 109 H, Carbon Dioxide 18.0 L, Anion Gap 13, BUN 25 H, Creatinine 1.59 H, Estim Creat Clear Calc 40.71, Est GFR (MDRD) Af Amer 57 L, Est GFR (MDRD) Non-Af 47 L, BUN/Creatinine Ratio 15.7, Glucose 132 H, Calcium 6.6 L, Magnesium 1.0 L, Total Bilirubin 2.30 H, AST 164 H , ALT 86 H, Alkaline Phosphatase 68, Total Creatine Kinase 101, Total Protein 4.6 L, Albumin 1.9 L, Globulin 2.7, Albumin/Globulin Ratio 0.7 L 07/25/21 04:45: WBC 1.6 L, RBC 3.18 L, Hgb 10.8 L, Hct 32.1 L, MCV 100.9 H, MCH 34.0 H, MCHC 33.6, RDW Std Deviation 60.0 H, RDW Coeff of Tatiana 16.4 H, Plt Count 36 L*, MPV 11.4, Neut % (Auto) Not Reportable, Absolute Neuts (auto) 1.3 L, Absolute Lymphs (auto) 0.08 L, Total Counted 100, Neutrophils % (Manual) 75 H, Band Neutrophils % 2, Lymphocytes % (Manual) 5 L, Monocytes % (Manual) 12 H, Metamyelocytes % 6 H, Differential Comment MANUAL DIFF, Diff Path Review Jenny villela, Platelet Estimate MKD DEC, RBC Morphology NORM C+C 07/25/21 04:45: Phosphorus 2.7 07/25/21 05:10: COVID-19 ([facility]) Not Detected Micro: Microbiology 07/25/21 01:27 Nasal Secretion SARS-CoV-2 Antigen (Rapid) - Final ABG Data ABG results: ABG 07/24/21 22:21 Specimen Type ART Sample Site R Radial pH 7.40 Bicarbonate Actual 21.2 L Total CO2 22 Base Excess -4 L O2 Saturation 98 O2 % 44 ABG pCO2 34.1 L ABG pO2 111 H Diaz Test Positive O2 Delivery Device Cannula Radiology Impression Abdomen/Pelvis CT 07/24/21 22:31 IMPRESSION: Sigmoid diverticulosis. The majority of the colon is not well distended limiting evaluation of wall thickening. If there is high clinical suspicion of colitis in particular involving the sigmoid colon, considered delayed images after administration of oral contrast or gastroenterology consult. Bilateral pneumonia which may represent Covid pneumonia. Hyperinflation suggestive of COPD. Small nonobstructing left renal calculus. Fatty liver. Old granulomatous disease. Electronically Signed: Jairo Tovar MD at 1:19 EDT Reading Location ID and State: [id number] / , Service support , Chest X-Ray 07/24/21 23:05 IMPRESSION: COPD with patchy bilateral pulmonary airspace disease/infiltrate. at 2335 Reported and signed by: Samson Mejia MD Electronically Signed: Samson Mejia MD at 23:34 EDT , Charges/Coding Visit Charges Inpatient E&M: 80977 Init Hosp L3
[2021-07-25 07:56] LABS: GGTP 315 U/L (15-85)
--- NOTE | 2021-07-25 08:28 | CON.PCM.CC_ITS ---
Assessment & Plan Assessment/Plan (1) Septic shock: (2) Abdominal pain: (3) Pneumonia: PLAN: RECOMMENDATIONS: 1. Continue empiric antibiotics pending culture data 2. Continue bronchodilators, steroids and mucolytic 3. Initiate pressors if needed to maintain MAP greater than 65 4. Possible need for central line later today 5. Wean supplemental oxygen as tolerated 6. Potential hematology consult. Await surgery recommendations 7. Pretreat for iodine allergy and obtain a CT with contrast IMPRESSIONS: 1. Possible septic shock Patient with marginal blood pressures, tachycardia, tachypnea, lymphopenia, lactic acidosis, hypoxic respiratory insufficiency and acute liver injury of unclear etiology. Patient does appear to be somewhat volume depleted and has responded to fluids thus far. Cannot exclude bowel ischemia or spontaneous bacterial peritonitis as an etiology. Patient does have multiple previous abdominal surgeries, but is not having nausea and vomiting such as an ileus. Patient has been placed on broad-spectrum antibiotics. Patient does have some findings of renal insufficiency/LYUDMILA, but it is unclear if this is new as there are no previous labs in our system. 2. Acute hypoxic respiratory insufficiency secondary to possible pneumonia/COPD Patient does have significant hyperinflation on chest x-ray with bilateral infiltrates. Viral work-up has been negative. Cannot exclude embolic pneumonia as an etiology. Patient is on broad-spectrum antibiotics, steroids and bronchodilators. Will add mucolytic. Aggressive pulmonary toileting. Wean oxygen as tolerated. 3. Fatty liver with possible alcoholic hepatitis Patient does have significant thrombocytopenia, lymphopenia and has been reporting darker stools. This may be secondary to problem #1 or patient may have a primary blood malignancy. May need to get oncology involved. Patient is currently on steroid therapy. GGT is elevated. Surgery has been consulted. Patient does have some right upper quadrant pain with mild rebound tenderness. Await recommendations. Will obtain a CT with contrast as patient has only had itching in the past and will be pretreated. This will allow for better elucidation of bowel pattern, possible liver metastasis or other etiology. Marlen ent does have lymphopenia and thrombocytopenia that may be secondary to chronic alcoholism. Will hold on phenobarb, but CIWA protocol with Ativan would be reasonable. 4. Severe hypokalemia/hypomagnesemia Patient with decreased albumin, so calcium does correct to 8.3. Cannot exclude an element of refeeding syndrome. Aggressive repletion has been ordered. Will repeat BMP later this afternoon with mag and Phos and supplement appropriately. 5. Hyperglycemia/unintentional weight loss/poor primary care/iodine allergy Complicates care, management, recovery and prognosis. Await work-up. Some concern for malignancy. ADDENDUM 11:15 AM: Called to the patient's bedside emergently at approximately 9:30 AM. Per the nurse, at approximately 9 AM, patient started to have problems with perfusion in extremities and started to become more dusky. Patient was placed on BiPAP without significant improvement. Patient's was contacted and updated on the situation. Did obtain verbal consent to proceed with intubation and central line if needed. Attempted a 1 L bolus with some improvement, but perfusion continue to be poor. Patient was intubated using 10 mg of etomidate without difficulty. Note below. Patient subsequently became more hypotensive. Patient was given 1 amp of bicarb with some improvement. Patient subsequently had a right IJ placed (note below) without complication. Vasopressin has been ordered. Lab has subsequently called and stated that there are gram-negative rods in blood culture. This appears to be consistent with gram-negative sepsis. Intubation Indication: Hypoxia Consent was obtained from: The patient was placed in the appropriate sniffing position. Preoxygenated sedation via BiPAP was provided for a minimum of 3 minutes. The patient had continuous cardiac as well as pulse oximetry monitoring during the procedure. Procedure sedation was provided by the administration of 10 mg of etomidate. Direct laryngoscopy was then performed using a number 4 blade, which revealed a grade 1 view. A 8 mm endotracheal tube was visualized advancing between the cords to the level of 23 cm at the lip. The stylette was then removed and discarded. Tube placement was confirmed by fogging in the tube along with equal and bilateral breath sounds. Colorimetric change was visualized on the CO2 meter. The cuff was then inflated and the tube secured using a commercially available device. A good pulse oximetry waveform was seen on the monitor throughout the procedure. A portable chest x-ray was ordered to confirm appropriate placement. The endotracheal tube was then advanced to 25 cm. The patient tolerated the procedure well. Central Venous Catheter Indication: Septic shock Consent was obtained from: A time-out was completed verifying correct patient, procedure, site, positioning, and special equipment if applicable. The patient was placed in a dependent position appropriate for central line placement based on the vein to be cannulated. The patient's right IJ was prepped and draped in a sterile fashion. 1% lidocaine was used to anesthetize the surrounding skin area. A triple-lumen catheter was introduced into the right IJ using the Seldinger technique and under ultrasound guidance. The catheter was threaded smoothly over the guidewire and appropriate blood return was obtained. Each lumen of the catheter was evacuated of air and flushed with sterile saline. The catheter was then sutured in place to the skin and a sterile dressing applied. Chest x-ray to confirm appropriate positioning noted structures in the appropriate location without complication. ULTRASOUND GUIDANCE STATEMENT (Vascular Access): I performed ultrasound image acquisition and interpretation for needle placement during the procedure. The vessel was identified and found to be free of thrombosis by compression technique. A safe point of entry was marked at the skin in an angle for axis was determined. The needle was guided by obtaining free-flowing fluid and by real-time visualization. ADDENDUM 12 PM: Called to the patient's room secondary to continued hypotension despite maximum dose Levophed and vasopressin. RT unable to get ABG and requested assistance. ABG obtained from the right femoral without complication using ultrasound guidance. This showed significant metabolic and respiratory acidosis. Tidal volume was increased to 500 and rate to 16. PaO2 was elevated, so oxygen was decreased to 90%. was updated that the patient is not doing well. Verbal order for epinephrine and amp of bicarb were also given. TIME: 95 minutes of critical care time, independent of initial evaluation, was spent addressing patient's septic shock, hypoxic respiratory failure, review of all data and collaboration with care team HPI Consult Data Date of Consult: 07/25/21 HPI Narrative HPI Narrative: SHARON TREJO is a 60 M, with reported past medical history listed below, who presents to [facility] on 07/24/2021 secondary to worsening abdominal pain. Patient states that these pain started approximate ly 24 hours previous and feels similar to his previous hernias. Patient has had 2 previous and has been told that he may need a third. Patient had had some associated chest pain and shortness of breath, but presented more from progression of abdominal pain. Patient did not report any nausea, vomiting, fever or chills. Patient does have a productive cough at baseline but does not feel this was significantly changed. Patient carries a diagnosis of COPD, but is not routinely followed by a system programmer. In the ER, patient was noted to be hypotensive and hypoxic at 99/85 and 82% on room air respectively. Patient was placed on 4 L nasal cannula. Patient also was tachycardic as high as 130 bpm. Laboratory work-up showed a white blood cell count of 5.1, hemoglobin of 12.4 and a platelet count of 54. Patient's coagulation studies were within normal limits, but potassium was 2.9, creatinine 1.59 and elevated liver enzymes. Lipase was less than 10. Initial lactate was elevated at 7.2 but did improve to 4.2 with intervention. ABG on nasal cannula showed adequate ventilation with an increased AA gradient. A CT of the abdomen showed sigmoid diverticulosis with the majority collapsed colon and bilateral groundglass opacities. Patient also noted to have a fatty liver. Chest x-ray confirmed bilateral patchy infiltrates. Patient was given vancomycin, Zosyn and fluid boluses. Surgery was contacted in the ER. Patient did not receive contrast secondary to a reported allergy. On arrival to the intensive care unit, there was some suspicion patient would require pressor therapy. However, patient appeared to have responded to the fluid boluses. Blood pressures have remained marginal, but no pressors have needed to be initiated. Patient subjectively feels improved compared to previous. Patient is still reporting significant abdominal pain, but feels that his aching is improved. Patient reportedly does drink on a regular basis. Patient denies being an alcoholic, but does state he can become shaky when he does not get his 2 beers per day. Patient is an active smoker, but does not follow with a system programmer. Patient does not take any baseline medications and has never had a PFT per his knowledge. Patient states he has a cough on a daily basis and does not believe it is changed in frequency or amount/color of sputum. Patient does report a 10 to 15 pound weight loss over the last month. Patient reports his stools as dark, but not black. Patient has not had any hematemesis or nausea reported. Patient does report some decreased appetite over the last 48 hours. Patient is not aware of any previous blood issues. Patient states he does not follow with any specialist, but did see his PCP months ago. Patient is a relatively poor historian and states that he was normal 2 days ago. Review of systems otherwise negative. Patient does report that he has had issues with itching when he is received IV contrast in the past. Patient denied any lip or tongue swelling. Review of systems otherwise negative from a constitutional, HEENT, respiratory, cardiovascular, GI, genitourinary, musculoskeletal, skin, neurologic, psychiatric and hematologic system unless stated above. [facility] Medical History COPD (chronic obstructive pulmonary disease) Home Medications cephalexin 500 mg PO Q6 #40 capsule 03/06/21 [Rx Last Taken Unknown] ibuprofen PRN PRN 07/25/21 [History Last Taken Unknown] Allergy/AdvReac Type Severity Reaction Status Date / Time mussels Allergy Angioedema Verified 03/06/21 16:59 naproxen [From Naprosyn] Allergy Angioedema Verified 03/06/21 16:59 iodine AdvReac Other Verified 07/24/21 22:53 Surgical History History of back surgery Hx of inguinal herniorrhaphy Social History Smoking Status: Current every day smoker tobacco type: cigarettes ROS ROS Narrative See HPI Physical Exam Const alert, oriented x3 and no apparent distress General Appearance: cooperative and appears older than stated age Nutritional Appearance: thin HEENT normocephalic and head/scalp atraumatic HEENT Narrative: Slight temporal wasting Eyes PERRL and EOMs intact bilaterally Sclera: sclera abnormal Positive for bilateral Details: scleral injection Det ails: Positive for diffuse Neck full ROM and no JVD General: trachea midline Lymph Lymphatic: no lymphadenopathy noted Chest Chest: abnormal inspection of the chest increased A-P diameter and symmetrical chest wall rise; Negative for crepitus Resp normal respiratory effort Effort and Inspection: prolonged expiratory phase Auscultation: rhonchi throughout (Improved with coughing) and wheezes expiratory wheezes; Negative for rales Cardio regular rhythm, S1 normal heart sound, S2 normal heart sound, no murmurs, no rub and no gallops Rate: tachycardic GI soft to palpation Inspection: abdominal distention Palpation: tender RUQ and guarding RUQ Percussion: Negative for fluid wave Extremity General Extremity: Negative for clubbing, cyanosis or edema Skin no rashes or lesions noted Skin Narrative: No caput medusa or telangiectasias appreciated Neuro oriented x3, CN's II-XII intact bilaterally, moves all extremities and no focal motor deficits Speech: speech normal Psych cooperative and affect normal Appearance: well kempt Lab / Micro Data Result Diagrams: 07/25/21 04:45 07/25/21 04:45 Labs: Laboratory Results - last 24 hr 07/24/21 21:52: WBC 5.1, RBC 3.63 L, Hgb 12.4 L, Hct 36.4 L, MCV 100.3 H, MCH 34.2 H, MCHC 34.1, RDW Std Deviation 60.1 H, RDW Coeff of Tatiana 16.3 H, Plt Count 54 L, MPV 12.4 H, Immature Gran % (Auto) 1.200 H, Neut % (Auto) 91.2 H, Lymph % (Auto) 3.5 L, [place] % (Auto) 3.7, Eos % (Auto) 0.0, Baso % (Auto) 0.4, Absolute Neuts (auto) 4.7, Absolute Lymphs (auto) 0.18 L, Nucleated RBC % 0, Differential Comment SEE COMMENT, Diff Path Review May foll, Toxic Granulation RARE, Platelet Estimate MOD DEC, RBC Morphology N CHROM, Hypochromasia RARE, Anisocytosis 1+, Macrocytosis 1+, Target Cells RARE 07/24/21 21:52: PT 14.0, INR 1.2, APTT 25.8 07/24/21 21:52: Sodium 136, Potassium 2.9 L, Chloride 100, Carbon Dioxide 21.0, Anion Gap 15, BUN 24 H, Creatinine 1.59 H, Estim Creat Clear Calc 40.51, Est GFR (MDRD) Af Amer 57 L, Est GFR (MDRD) Non-Af 47 L, BUN/Creatinine Ratio 15.1, Glucose 112 H, Calcium 7.9 L, Total Bilirubin 2.40 H, Direct Bilirubin 1.65 H, AST 262 H, ALT 122 H, Alkaline Phosphatase 142 H, Troponin I High Sens 4, Total Protein 6.0 L, Albumin 2.5 L, Globulin 3.5, Lipase < 10 L 07/24/21 22:00: Lactic Acid 7.2 H* 07/25/21 00:10: Lactic Acid Cancelled 07/25/21 01:02: Lactic Acid 4.2 H* 07/25/21 04:45: Sodium 140, Potassium 2.9 L, Chloride 109 H, Carbon Dioxide 18.0 L, Anion Gap 13, BUN 25 H, Creatinine 1.59 H, Estim Creat Clear Calc 40.71, Est GFR (MDRD) Af Amer 57 L, Est GFR (MDRD) Non-Af 47 L, BUN/Creatinine Ratio 15.7, Glucose 132 H, Calcium 6.6 L, Magnesium 1.0 L, Total Bilirubin 2.30 H, AST 164 H , ALT 86 H, Alkaline Phosphatase 68, Total Creatine Kinase 101, Total Protein 4.6 L, Albumin 1.9 L, Globulin 2.7, Albumin/Globulin Ratio 0.7 L 07/25/21 04:45: WBC 1.6 L, RBC 3.18 L, Hgb 10.8 L, Hct 32.1 L, MCV 100.9 H, MCH 34.0 H, MCHC 33.6, RDW Std Deviation 60.0 H, RDW Coeff of Tatiana 16.4 H, Plt Count 36 L*, MPV 11.4, Neut % (Auto) Not Reportable, Absolute Neuts (auto) 1.3 L, Absolute Lymphs (auto) 0.08 L, Total Counted 100, Neutrophils % (Manual) 75 H, Band Neutrophils % 2, Lymphocytes % (Manual) 5 L, Monocytes % (Manual) 12 H, Metamyelocytes % 6 H, Differential Comment MANUAL DIFF, Diff Path Review May foll, Platelet Estimate MKD DEC, RBC Morphology NORM C+C 07/25/21 04:45: Phosphorus 2.7 07/25/21 05:10: COVID-19 (CONNOR) Not Detected 07/25/21 06:50: GGT 315 H, Folate 7.80 Micro: Microbiology 07/24/21 22:05 Blood Culture (Wb) - Anticubital Left Blood Culture - Preliminary 07/25/21 01:27 Nasal Secretion SARS-CoV-2 Antigen (Rapid) - Final ABG Data ABG results: ABG 07/24/21 22:21 Specimen Type ART Sample Site R Radial pH 7.40 Bicarbonate Actual 21.2 L Total CO2 22 Base Excess -4 L O2 Saturation 98 O2 % 44 ABG pCO2 34.1 L ABG pO2 111 H Diaz Test Positive O2 Delivery Device Cannula Radiology Impression Abdomen/Pelvis CT 07/24/21 22:31 IMPRESSION: Sigmoid diverticulosis. The majority of the colon is not well distended limiting evaluation of wall thickening. If there is high clinical suspicion of colitis in particular involving the sigmoid colon, considered delayed images after administration of oral contrast or gastroenterology consult. Bilateral pneumonia which may represent Covid pneumonia. Hyperinflation suggestive of COPD. Small nonobstructing left renal calculus. Fatty liver. Old granulomatous disease. Electronically Signed: Jairo Tovar MD at 1:19 EDT , Chest X-Ray 07/24/21 23:05 IMPRESSION: COPD with patchy bilateral pulmonary airspace disease/infiltrate. at 2335 Reported and signed by: Samson Mejia MD Electronically Signed: Samson Mejia MD at 23:34 EDT , Charges/Coding Visit Charges Inpatient E&M: 97376 Init Hosp L3 Procedures Hospitalists Procedures: 21592 Critial Care 1st Hr Multi Select Codes Hospitalists' Procedures Procedures: 18436 Critial Care Addl 30 Min (Total of 80 minutes of critical care time independent of initial evaluation)
[2021-07-25 09:03] LABS: Vitamin B12 1794 pg/mL (211-911)
[2021-07-25] MEDS: 0.9% Normal Saline 1,000 ML 999 ML IV (09:40)
[2021-07-25] MEDS: Etomidate 20 MG/10 ML Vial 10 MG IV (10:10)
--- NOTE | 2021-07-25 10:20 | RAD_ITS ---
STUDY: X-RAY CHEST REASON FOR EXAM: Male, 60 years old. Intubation TECHNIQUE: Single AP portable view of the chest. COMPARISON: Comparison is made with prior examination of 07/24/2021. FINDINGS: The endotracheal tube is in situ. The tip is at 4.7 cm proximal to the todd. EKG electrodes are seen. Hyperinflation. Patchy infiltrate in the right upper lobe as well as in both lower lobes worse on the right side as compared to prior examination. There is no demonstrated pleural abnormality. Normal size heart. Normal mediastinum and kerline. Normal visualized pulmonary arteries. Normal visualized aortic arch and descending thoracic aorta. Normal visualized thoracic spine. Normal visualized ribs, clavicles, and shoulders. There is no demonstrated abnormality of the visualized soft tissue structures of the upper abdomen. RAD/Chest 1 View (Portable) IMPRESSION: The tip of the endotracheal tube is at 4.7 cm proximal to the todd. Patchy right upper lobe infiltrate as well as patchy infiltrates at both lung bases worse on the right side. There is been progression as compared to prior study. Electronically Signed: Florin Mead MD at 11:05 EDT ,
[2021-07-25 10:30] LABS: Mucous, Urine 0 SEEN /hpf (<or=2+)
--- NOTE | 2021-07-25 10:30 | NURSING ---
1007: Dr Lawrence at bedside preparing to intubate. 1010: Etomidate 10mg IVP given 1012: Size 8 OET placed x1 attempt. 23 at lip. + color change. + b/l breath sounds. PT tolerated well
[2021-07-25 10:34] LABS: Color, Urine Amber (Yellow); Glucose, Dipstick Normal (Normal); Ketone-Dipstick 5 mg/dl (Negative); Leukocyte Esterase-Dipstick 25 /ul (Negative); Nitrite-Dipstick Negative (Negative); Occult Blood-Urine 50 /ul (Negative); Protein-Dipstick 100 mg/dl (Negative); Urine Bilirubin Dipstick 1 mg/dL (Negative); Urine Clarity Clear (Clear); Urine Urobilinogen 1 mg/dl (Normal)
[2021-07-25] MEDS: Sodium Bicarbonate 8.4% 50 ML Syringe 50 MEQ IV ×2 (10:35→12:05)
--- NOTE | 2021-07-25 10:39 | NURSING ---
Dr. Lawrence at bedside for central line placement.
[2021-07-25 10:48] LABS: Amorphous Sediment 1+; Bacteria 1+ /hpf (None Seen); Red Blood Cells-Urine 0-5 SEEN /hpf (0-5); Squamous Epithelial Cells - UA 0-5 SEEN /hpf (0-5); White Blood Cells 0-5 SEEN /hpf (0-5)
[2021-07-25 10:57] LABS: Amphetamine Urine VISTA NEGATIVE (<1000 ng/mL); Barbiturate Urine VISTA NEGATIVE (< 200 ng/mL); Benzodiazepine Urine VISTA NEGATIVE (< 200 ng/mL); Cocaine Urine VISTA NEGATIVE (< 300 ng/mL); Ecstacy Urine VISTA NEGATIVE (< 500 ng/mL); Methadone Urine VISTA NEGATIVE (< 300 ng/mL); PCP Urine VISTA NEGATIVE (< 25 ng/mL); THC Urine VISTA NEGATIVE (< 50 ng/mL); Vista UDS pH Range 5
--- NOTE | 2021-07-25 11:10 | RAD_ITS ---
STUDY: X-RAY CHEST REASON FOR EXAM: Male, 60 years old. Central line and OG verification TECHNIQUE: Single AP portable view of the chest. COMPARISON: Comparison is made with prior study done earlier today at 10:17 AM. FINDINGS: A normal orogastric tube has been placed with the tip in the body of the stomach. RAD/CXR for Line Placement IMPRESSION: The tip of the oral gastric tube is in the body of the stomach. Electronically Signed: Florin Mead MD at 11:54 EDT ,
[2021-07-25 12:01] LABS: Base Excess -25 mmol/L (-2 to +2); Bicarbonate 8.8 mmol/L (22-26); Blood Gas Specimen Type ART; FI02 100; Mode AC; O2 Delivery Device Adult Vent; PEEP 10; PO2 150 mmHG (75-100); RR 12; SITE R Fem; SO2 96 % (95-99); Total Carbon Dioxide 10 mmol/L; Vt 450; pCO2 52.7 mmHg (35-45); pH 6.83 (7.35-7.45)
--- NOTE | 2021-07-25 12:05 | EKG12_ITS ---
Test Reason : TACHY Blood Pressure : / mmHG Vent. Rate : 145 BPM Atrial Rate : 145 BPM P-R Int : 136 ms QRS Dur : 076 ms QT Int : 250 ms P-R-T Axes : 084 058 085 degrees QTc Int : 388 ms Sinus tachycardia Low voltage QRS Borderline ECG When compared with ECG of 24-JUL-2021 21:54, Questionable change in QRS axis Nonspecific T wave abnormality no longer evident in Inferior leads T wave inversion no longer evident in Anterolateral leads Confirmed by SHERINE PEREZ, JONATHAN ([id number]), supervising editor trailer CROW SOSA ([id number]) on 07/29/2021 2:41:38 PM Referred By: ESTELLA Confirmed By:KALEB BASURTO MD
[2021-07-25] MEDS: 0.9% Saline Lock 10 ML Syringe IV (12:12)
[2021-07-25 12:13] LABS: M R Staph aureus DNA By PCR Negative (Negative); Probe Check PASS; Specimen Processing Control PASS
[2021-07-25 12:19] LABS: CPK Total, Creatine Kinase 110 U/L (39-308); Triglycerides 184 mg/dL
--- NOTE | 2021-07-25 12:21 | EKG12_ITS ---
Test Reason : ST ELEVATION Blood Pressure : / mmHG Vent. Rate : 124 BPM Atrial Rate : 124 BPM P-R Int : 160 ms QRS Dur : 084 ms QT Int : 260 ms P-R-T Axes : 090 056 109 degrees QTc Int : 373 ms Sinus tachycardia Low voltage QRS Septal infarct , age undetermined T wave abnormality, consider anterolateral ischemia Abnormal ECG When compared with ECG of 25-JUL-2021 12:05, MANUAL COMPARISON REQUIRED, DATA IS UNCONFIRMED Confirmed by SHERINE PEREZ, JONATHAN ([id number]), art editor CROW SOSA ([id number]) on 07/29/2021 2:38:37 PM Referred By: ESTELLA Confirmed By:KALEB BASURTO MD
[2021-07-25 12:59] LABS: Lactic Acid 14.7 mmol/L (0.4-1.9)
[2021-07-25 13:01] LABS: Anion Gap 15 (5-15); BUN 26 mg/dL (7-18); BUN/Creat Ratio 12.4 RATIO (10-20); Calcium,Total 6.6 mg/dL (8.5-10.1); Chloride 109 mmol/L (98-107); EST Glomerular Filtration Rate 34 mL/min (>60); Est Glom Filt Rate - Afr Amer 41 mL/min (>60); Estimated Creatinine Clearance 30.83 ml/min; Glucose 50 mg/dL (74-106); Magnesium 3.5 mg/dL (1.6-2.6); Phosphorus 7.6 mg/dL (2.5-4.9); Potassium 5.4 mmol/L (3.5-5.1); Sodium Level 146 mmol/L (136-145); Troponin-I HS 7 pg/mL (3.0-78.0)
[2021-07-25] MEDS: Dextrose 10%-Water 250 ML 999 ML IV (13:03)
[2021-07-25] MEDS: Vancomycin IV 500 MG/100 ML BAG 100 MG IV (13:08)
[2021-07-25] MEDS: Calcium Gluconate 1 GM/10 ML Vial IVP (13:14)
--- NOTE | 2021-07-25 13:18 | PCM.PN.HOSP ---
Subjective Subjective Worsened oxygenation today. Placed on BiPAP. Worsened and subsequently intubated and TLC placed. Remained hypotensive despite pressors. Objective Data Objective Data Vital Signs: Vital Signs Temp Pulse Resp BP Pulse Ox 37.4 C H 119 H 20 H 146/95 H 96 07/25/21 13:00 07/25/21 13:00 07/25/21 13:00 07/25/21 13:00 07/25/21 13:00 Oxygen Flow Rate (L/min) 2 Oxygen Delivery Method Mechanical Ventilator Weight: 59 kg Body Mass Index (BMI) 17.6 Intake & Output: Intake and Output for Last 24 Hours 07/23/21 07/24/21 07/25/21 23:59 23:59 23:59 Intake Total 1183.33 / 1183.33 5378.46 / 5378.46 Output Total 105 / 105 Balance 1183.33 / 1183.33 5273.46 / 5273.46 Lab / Micro Data Result Diagrams: 07/25/21 04:45 07/25/21 12:05 Labs: Laboratory Results - last 24 hr 07/24/21 21:52: WBC 5.1, RBC 3.63 L, Hgb 12.4 L, Hct 36.4 L, MCV 100.3 H, MCH 34.2 H, MCHC 34.1, RDW Std Deviation 60.1 H, RDW Coeff of Tatiana 16.3 H, Plt Count 54 L, MPV 12.4 H, Immature Gran % (Auto) 1.200 H, Neut % (Auto) 91.2 H, Lymph % (Auto) 3.5 L, [place] % (Auto) 3.7, Eos % (Auto) 0.0, Baso % (Auto) 0.4, Absolute Neuts (auto) 4.7, Absolute Lymphs (auto) 0.18 L, Nucleated RBC % 0, Differential Comment SEE COMMENT, Diff Path Review May foll, Toxic Granulation RARE, Platelet Estimate MOD DEC, RBC Morphology N CHROM, Hypochromasia RARE, Anisocytosis 1+, Macrocytosis 1+, Target Cells RARE 07/24/21 21:52: PT 14.0, INR 1.2, APTT 25.8 07/24/21 21:52: Sodium 136, Potassium 2.9 L, Chloride 100, Carbon Dioxide 21.0, Anion Gap 15, BUN 24 H, Creatinine 1.59 H, Estim Creat Clear Calc 40.51, Est GFR (MDRD) Af Amer 57 L, Est GFR (MDRD) Non-Af 47 L, BUN/Creatinine Ratio 15.1, Glucose 112 H, Calcium 7.9 L, Total Bilirubin 2.40 H, Direct Bilirubin 1.65 H, AST 262 H, ALT 122 H, Alkaline Phosphatase 142 H, Troponin I High Sens 4, Total Protein 6.0 L, Albumin 2.5 L, Globulin 3.5, Lipase < 10 L 07/24/21 22:00: Lactic Acid 7.2 H* 07/25/21 00:10: Lactic Acid Cancelled 07/25/21 01:02: Lactic Acid 4.2 H* 07/25/21 04:45: Sodium 140, Potassium 2.9 L, Chloride 109 H, Carbon Dioxide 18.0 L, Anion Gap 13, BUN 25 H, Creatinine 1.59 H, Estim Creat Clear Calc 40.71, Est GFR (MDRD) Af Amer 57 L, Est GFR (MDRD) Non-Af 47 L, BUN/Creatinine Ratio 15.7, Glucose 132 H, Calcium 6.6 L, Magnesium 1.0 L, Total Bilirubin 2.30 H, AST 164 H, ALT 86 H, Alkaline Phosphatase 68, Total Creatine Kinase 101, Total Protein 4.6 L, Albumin 1.9 L, Globulin 2.7, Albumin/Globulin Ratio 0.7 L 07/25/21 04:45: WBC 1.6 L, RBC 3.18 L, Hgb 10.8 L, Hct 32.1 L, MCV 100.9 H, MCH 34.0 H, MCHC 33.6, RDW Std Deviation 60.0 H, RDW Coeff of Tatiana 16.4 H, Plt Count 36 L*, MPV 11.4, Neut % (Auto) Not Reportable, Absolute Neuts (auto) 1.3 L, Absolute Lymphs (auto) 0.08 L, Total Counted 100, Neutrophils % (Manual) 75 H, Band Neutrophils % 2, Lymphocytes % (Manual) 5 L, Monocytes % (Manual) 12 H, Metamyelocytes % 6 H, Differential Comment MANUAL DIFF, Diff Path Review May foll, Platelet Estimate MKD DEC, RBC Morphology NORM C+C 07/25/21 04:45: Phosphorus 2.7 07/25/21 05:10: COVID-19 ([facility]) Not Detected 07/25/21 06:50: Vitamin B12 1794 H 07/25/21 06:50: GGT 315 H, Folate 7.80 07/25/21 06:50: Total Creatine Kinase 110, Triglycerides 184 07/25/21 08:10: MRSA (PCR) Negative 07/25/21 10:25: Urine Opiates Screen POSITIVE H, Urine Methadone Screen NEGATIVE, Ur Barbiturates Screen NEGATIVE, Ur Phencyclidine Scrn NEGATIVE, Ur Amphetamines Screen NEGATIVE, MDMA (Ecstasy) Screen NEGATIVE, U Benzodiazepines Scrn NEGATIVE, Urine Cocaine Screen NEGATIVE, U Cannabinoids Screen NEGATIVE, Ur Drug Screen Comment 07/25/21 10:25: Urine Color Shayy, Urine Clarity Clear, Urine pH 5.0, Ur Specific [place] 1.020, Urine Protein 100 H, Urine Glucose (UA) Normal, Urine Ketones 5 H, Urine Occult Blood 50 H, Urine Nitrite Negative, Urine Bilirubin 1 H, Urine Urobilinogen 1 H, Ur Leukocyte Esterase 25 H, Urine RBC 0-5 SEEN, Urine WBC 0-5 SEEN, Ur Squamous Epith Cells 0-5 SEEN, Amorphous Sediment 1+, Urine Bacteria 1+, Urine Mucus 0 SEEN 07/25/21 12:05: Sodium 146 H, Potassium 5.4 H, Chloride 109 H, Carbon Dioxide 22.0, Anion Gap 15, BUN 26 H, Creatinine 2.10 H, Estim Creat Clear Calc 30.83, Est GFR (MDRD) Af Amer 41 L, Est GFR (MDRD) Non-Af 34 L, BUN/Creatinine Ratio 12.4, Glucose 50 L, Calcium 6.6 L, Phosphorus 7.6 H, Magnesium 3.5 H, Troponin I High Sens 7 07/25/21 12:05: Lactic Acid 14.7 H* Micro: Microbiology 07/25/21 10:25 Urine, Clean Catch Legionella Antigen - Final 07/25/21 10:25 Urine, Clean Catch Streptococcus pneumoniae Antigen (M - Final 07/24/21 22:05 Blood Culture (Wb) - Anticubital Left Blood Culture - Preliminary 07/24/21 22:00 Blood Culture (Wb) - Anticubital Left Blood Culture - Preliminary 07/25/21 05:10 Mucosa - Nasopharyngeal - Final 03/28/22 01:27 Nasal Secretion SARS-CoV-2 Antigen (Rapid) - Final ABG Data ABG results: ABG 07/24/21 07/25/21 22:21 11:53 Specimen Type ART ART Sample Site R Radial R Fem pH 7.40 6.83 L* Bicarbonate Actual 21.2 L 8.8 L Total CO2 22 10 Base Excess -4 L -25 L O2 Saturation 98 96 O2 % 44 100 ABG pCO2 34.1 L 52.7 H ABG pO2 111 H 150 H Diaz Test Positive N/A Respiration Rate 12 O2 Delivery Device Cannula Adult Vent Vent Mode AC Tidal Volume 450 POC PEEP 10 Crit Call To/Read Back Yes Blood Gas Notified Whom dr santana Radiography Diagnostic Testing: Radiology Impression Abdomen/Pelvis CT 07/24/21 22:31 IMPRESSION: Sigmoid diverticulosis. The majority of the colon is not well distended limiting evaluation of wall thickening. If there is high clinical suspicion of colitis in particular involving the sigmoid colon, considered delayed images after administration of oral contrast or gastroenterology consult. Bilateral pneumonia which may represent Covid pneumonia. Hyperinflation suggestive of COPD. Small nonobstructing left renal calculus. Fatty liver. Old granulomatous disease. Electronically Signed: Jairo Tovar MD at 1:19 EDT , Chest X-Ray 07/24/21 23:05 IMPRESSION: COPD with patchy bilateral pulmonary airspace disease/infiltrate. at 2335 Reported and signed by: Samson Mejia MD Electronically Signed: Samson Mejia MD at 23:34 EDT , Chest X-Ray 07/25/21 10:20 IMPRESSION: The tip of the endotracheal tube is at 4.7 cm proximal to the todd. Patchy right upper lobe infiltrate as well as patchy infiltrates at both lung bases worse on the right side. There is been progression as compared to prior study. Electronically Signed: Florin Mead MD at 11:05 EDT , Chest X-Ray 07/25/21 11:10 IMPRESSION: The tip of the oral gastric tube is in the body of the stomach. Electronically Signed: Florin Mead MD at 11:54 EDT , Physical Exam Const Constitutional Narrative: uncomfortable Resp normal respiratory effort, no retractions, no use of accessory muscles and clear to auscultation bilaterally Cardio regular rate, regular rhythm, S1 normal heart sound and S2 normal heart sound GI GI Narrative: distended. taut Palpation: tender Extremity normal to inspection Assessment & Plan Assessment/Plan (1) Septic shock: PLAN: 1. Septic shock (hypotension, tachycardia, tachypnea, hypoxia, lactic acidosis with organ failure;acute hypoxic respiratory failure acute kidney injury and acute liver injury) concern for intraabdominal source (concern for ischemic colitis) positive BCx for GP and GNR lactate worsening (4 to 14) Abx with pip/tazo and vancomycin Pressors with norepi, epi and vasopressin 2. Bacteremia polymicrobial continue abx follow up Cx 3. Acute hypoxic respiratory failure probably 2/2 metabolic acidosis less likely pneumonia intubated 07/25 4. Pancytopenia unclear etiology concern for underlying cirrhosis 5. LYUDMILA worsening monitor 6. Hypokalemia resolve 7. Hyperkalemia monitor closely 8. Transaminitis etiology unclear could be shock liver v underlying liver disease 9. Prognosis: guarded to poor. Charges/Coding Procedures Hospitalists Procedures: Other Procedure - See Report (Nonbillable rounding as patient was admitted after midnight.)
--- NOTE | 2021-07-25 13:41 | CASEMGMT ---
Tertiary facilities in-network with patient's [facility] insurance: Georgi Ramos [facility], [facility], Anna Harkins, [facility], , [place], [facility], [facility], and [facility].
[2021-07-25] MEDS: NS 0.9% CONT INF (14:15)
[2021-07-25] MEDS: EPINEPHRINE CONT INF (14:15)
--- NOTE | 2021-07-25 14:22 | CHAPLAIN ---
Type of Pastoral Visit _x__ Initial Visit ___ Follow-up Visit ___ On-call Visit ___ General Patient Visit ___ Spiritual Assessment ___ Family Conference ___ Bereavement ___ Rapid Response ___ Code Blue ___ Other (describe below) Pastoral Care Referral From ___ Patient ___ Family _x__ Nurse ___ Physician ___ Rotary Dryer Operator ___ Soft Hat Binder ___ Other (describe below) Sacrament/Intervention _x__ Active listening ___ Anointing ___ Catholic ___ Bereavement ___ Communion ___ [place] exploration ___ ___ Life review _x__ Prayer ___ Reconciliation ___ Sacrament of Sick _x__ Supportive presence ___ Wedding ___ Other (describe below) Pastoral Comments RN recommended support for of patient who is very critical; met spouse in waiting room and sat with her until time to go back to revisit the patient; spouse is calling family and quite anxious; gave calm, review of situation, assistance with phone contacts, offer of water, and escorted more family when they arrived to visit pt in ICU; pt is on a vent and unresponsive; was present when DR met with family to explain situation; will remain available as needed as more family is expected yet today
--- NOTE | 2021-07-25 14:38 | NURSING ---
sister to bedside, explanation of current measures
--- NOTE | 2021-07-25 14:59 | NURSING ---
Addendum entered by Vijaya Anderson 07/25/21 15:11: correct time 1455 to verify PEA, no pulse Original Note: monitor PEA, no pulse ausculated or palpated. Carlyn Currie RN also verified no pulse. family at bedside. support given.
[2021-07-25 16:30] LABS: Reflex Lactate? Y
--- NOTE | 2021-07-25 16:54 | CHAPLAIN ---
Type of Pastoral Visit ___ Initial Visit ___ Follow-up Visit ___ On-call Visit ___ General Patient Visit ___ Spiritual Assessment _x__ Family Conference _x__ Bereavement ___ Rapid Response ___ Code Blue ___ Other (describe below) Pastoral Care Referral From ___ Patient ___ Family ___ Nurse ___ Physician ___ Communications Planner ___ Reheater ___ Other (describe below) Sacrament/Intervention _x__ Active listening ___ Anointing ___ Druze ___ Bereavement ___ Communion ___ [place] exploration ___ ___ Life review _x__ Prayer ___ Reconciliation ___ Sacrament of Sick _x__ Supportive presence ___ Wedding ___ Other (describe below) Pastoral Comments checked on family a few times; when daughter arrived from [place] she was escorted by this webbing supervisor to waiting room where her mother told her the patient/her father had ; escorted family back to be in the room, gave presence, calm words, prayer and scripture, and then met SW who came to offer assistance and support as well; SW will be sharing some possible resource ideas for burial/cremation as requested by family
--- NOTE | 2021-07-25 17:21 | PCM.DEATH ---
Preliminary Cause of Preliminary Cause of Preliminary Cause of : Ischemic colitis Date of Admission: 07/25/21 Principle Diagnosis Problem List: Active and Suspected Problems (Updated 07/25/21 @ 09:[address] Kenyetta Heath MD) Thrombocytopenia (Acute) Sigmoid thickening (Acute) Septic shock (Acute) Pneumonia (Acute) Abdominal pain (Acute) Transaminitis (Acute) Acidosis, lactic (Acute) Hospital Course 60-year-old presents on the with right upper quadrant abdominal pain and hypertension. CAT scan of his abdomen showed sigmoid diverticulosis. The majority the colon was not well distended limiting evaluation of wall thickening. This was done without contrast. Lactic acid did go from 4-14. Patient was also short of breath. Initial ABG showed pH of 7.4 but subsequent ABG performed later on the showed pH of 6.83 and his PCO2 went up 52.7. The ABG was consistent with metabolic acidosis and concomitant respiratory acidosis. Patient was intubated and central line was placed. Patient was requiring vasopressors and maxed out on norepinephrine and vasopressin and was started on epinephrine. Despite that the patient's condition continued to deteriorate. Patient's abdomen became more distended and had noted mottling. The concern was for ischemic colitis. Patient was noted to be bacteremic with gram-positive rods and gram negative rods on 2 separate blood cultures. Patient was seen by general surgery and recommended CT imaging with contrast, however that could not be performed as the patient's condition continued to deteriorate. Patient at 1455 on July 25, 2021. Given the patient's lactic acidosis, abdominal distention, septic shock it is clinically felt that the patient had ischemic colitis though the images did not verify that initially. Assessment & Plan Assessment/Plan (1) Septic shock: PLAN: 1. Septic shock (hypotension, tachycardia, tachypnea, hypoxia, lactic acidosis with organ failure;acute hypoxic respiratory failure acute kidney injury and acute liver injury) concern for intraabdominal source (concern for ischemic colitis) positive BCx for GP and GNR lactate worsening (4 to 14) Abx with pip/tazo and vancomycin Pressors with norepi, epi and vasopressin 2. Bacteremia polymicrobial continue abx follow up Cx 3. Acute hypoxic respiratory failure probably 2/2 metabolic acidosis less likely pneumonia intubated 07/25 4. Pancytopenia unclear etiology concern for underlying cirrhosis 5. LYUDMILA worsening monitor 6. Hypokalemia resolve 7. Hyperkalemia monitor closely 8. Transaminitis etiology unclear could be shock liver v underlying liver disease Visit Charges Inpatient E&M: 53961 Disch Hosp
--- NOTE | 2021-07-25 17:33 | CM.ED ---
Magalie Note Referral Source : [facility] [employer] Referral Reason: Patient . MAGALIE met with patient's , Salima, and patient's daughter Roberta along with 2 neighbors in patient's room. SW provided emotional support. expressed concern regarding how to pay for the cremation and service. Per patient wanted cremation. MAGALIE called [facility] and spoke to staff who inquired if patient is a or had covid. Patient does not have covid. [facility] said that they would recommend family reach out to financial support agencies on the [employer]. SW spoke to patient's and inquired if patient was and was unsure. Neighbors stated they thought patient had been in the . SW recommended that patient contact a assistance group in [place] that assists with services (SW had attempted to call the group but it was after 5pm so there was no answer) and call [facility] as patient's daughter is in foster care through [facility] and maybe they would be aware of a resource for patient's and cremation service. Roberta is in a mcc in [facility] and her staff brought her to the hospital today. MAGALIE wrote all these possible resources down for patient's so she could recall the information later. SW remains available if needs arise. MAGALIE called [facility]osp[facility] and spoke to Albertina. She said that there is an agency in [place] that helps with low cost funerals however she was unable to recall the name of it. Linda BENOIT
[2021-07-26 09:08] LABS: HEPATITIS B SURFACE AG Negative (Negative); Hepatitis A IgM Antibody Negative (Negative); Hepatitis B Core AB IgM Negative (Negative)
[2021-07-26 14:12] LABS: Pathologist Review Reviewed
[2021-07-26 14:21] LABS: Pathologist Review Reviewed
[2021-07-30 16:00] LABS: Hep C Antibodies <0.1 s/co ratio (0.0-0.9)
== END 2021-07-25 18:05 | DRG 720 ==
LOC: ED 07-25 02:26 → ICU 07-25 03:17
PROVIDERS: Internal Medicine Critical Care Medicine; Admitting Provider Internal Medicine; Emergency Provider Emergency Medicine
DX: A41.9 Sepsis, unspecified organism (principal); J96.01 Acute respiratory failure with hypoxia; K72.00 Acute and subacute hepatic failure without coma; K55.9 Vascular disorder of intestine, unspecified; D61.818 Other pancytopenia; J18.9 Pneumonia, unspecified organism; J44.0 Chronic obstructive pulmonary disease with (acute) lower respiratory infection; D69.6 Thrombocytopenia, unspecified; N17.9 Acute kidney failure, unspecified; R65.20 Severe sepsis without septic shock; E11.40 Type 2 diabetes mellitus with diabetic neuropathy, unspecified; E11.65 Type 2 diabetes mellitus with hyperglycemia; G62.1 Alcoholic polyneuropathy; F10.20 Alcohol dependence, uncomplicated; E88.09 Other disorders of plasma-protein metabolism, not elsewhere classified; I95.9 Hypotension, unspecified; F17.210 Nicotine dependence, cigarettes, uncomplicated; E87.6 Hypokalemia; D53.9 Nutritional anemia, unspecified; K76.0 Fatty (change of) liver, not elsewhere classified; E83.42 Hypomagnesemia; K57.30 Diverticulosis of large intestine without perforation or abscess without bleeding; E87.5 Hyperkalemia; B96.20 Unspecified Escherichia coli [E. coli] as the cause of diseases classified elsewhere; B96.5 Pseudomonas (aeruginosa) (mallei) (pseudomallei) as the cause of diseases classified elsewhere; B96.89 Other specified bacterial agents as the cause of diseases classified elsewhere
CPT/HCPCS: 31500; 31720; 36600; 71045; 74176; 76705; 80048; 80053; 80074; 80076; 80307; 81001; 82550; 82607; 82746; 82803; 82977; 83605; 83690; 83735; 84100; 84478; 84484; 85025; 85610; 85730; 87040; 87070; 87077; 87186; 87205; 87449; 87632; 87635; 87641; 87811; 93005; 94002; 94640; 99251; 99285; J7030; J7050; J7120; A4216; G0463; J0610; J2405; J3010; J3490; U0003; U0005